=== PATIENT | male | born 1965 | race African-American/Black ===

== ENCOUNTER → 2019-03-10 | Outpatient (CLI) | payer BC ==
[2016-06-04 19:17] VITALS: BP 183/116
[~2019-03-10] MED LIST: AMLO10TA4 PO
--- NOTE | 2019-03-10 18:35 | RAD ---
MR of the right knee HISTORY: Generalized right knee pain. Tightness. TECHNIQUE: Routine multiple planar sequences are obtained. FINDINGS: Tiny defect at the free margin of the posterior horn medial meniscus pop, possible small radial tear. No evidence of lateral meniscal tear. The anterior and posterior cruciate ligaments are intact. Medial collateral ligament is intact. Iliotibial band unremarkable. Fibular collateral ligament, biceps femoris tendon and popliteus tendon are intact. The extensor mechanism is intact. No acute retinacular tear. Small joint effusion. Chondromalacia at the posterior lateral tibial plateau. Mild chondromalacia at the patellofemoral joint. Trace Antony's cyst. IMPRESSION: 1. Tiny radial tear at the free margin of the posterior horn of the medial meniscus. 2. Degenerative changes. Electronically signed by: Derick Crystal MD (03/10/2019 6:32 PM) [facility]
== END | disposition home or self-care (01) ==
LOC: MRI 14:36
PROVIDERS: ATTEND Family Medicine
DX: S83.241A Other tear of medial meniscus, current injury, right knee, initial encounter (principal); M94.261 Chondromalacia, right knee; M17.11 Unilateral primary osteoarthritis, right knee; M71.21 Synovial cyst of popliteal space [Baker], right knee; M25.461 Effusion, right knee; X58.XXXA Exposure to other specified factors, initial encounter; Y93.89 Activity, other specified; Y92.89 Other specified places as the place of occurrence of the external cause; Y99.8 Other external cause status
CPT/HCPCS: 73721